=== PATIENT | male | born 1965 | race Caucasian/White ===

== ENCOUNTER 2016-11-03 14:20 | Emergency (ER) | payer MEDICAID ==
[~2016-11-03] VITALS: Ht 175.3 cm; Wt 75.0 kg
[~2016-11-03 14:20] MED LIST: PHEN100C4 PO; SULF1TAB48 PO
[2016-11-03 15:36] VITALS: BP 105/66
== END 2016-11-03 19:30 | disposition left against medical advice (07) ==
LOC: ER 14:20
DX: Z53.21 Procedure and treatment not carried out due to patient leaving prior to being seen by health care provider (principal)

== ENCOUNTER 2016-11-05 17:00 | Emergency (ER) | payer MEDICAID ==
[~2016-11-05] VITALS: Ht 175.3 cm; Wt 73.0 kg
[2016-11-05] MEDS ORDERED: KETOROLAC 60MG/2ML VIAL IM ONE (20:00)
[2016-11-05] MEDS ORDERED: CLINDAMYCIN HCL 150MG CAPSULE PO ONE (20:00)
[2016-11-05 20:40] VITALS: BP 126/75
== END 2016-11-05 20:40 | disposition home or self-care (01) ==
LOC: ER 18:00
DX: J01.90 Acute sinusitis, unspecified (principal); F17.200 Nicotine dependence, unspecified, uncomplicated; F15.10 Other stimulant abuse, uncomplicated; R56.9 Unspecified convulsions; Z98.890 Other specified postprocedural states
CPT/HCPCS: 96372; 99283; J1885

== ENCOUNTER 2017-01-08 19:20 | Emergency (ER) | payer MEDICAID ==
[~2017-01-08] VITALS: Ht 172.7 cm; Wt 78.0 kg
[2017-01-08 19:58] VITALS: BP 137/93
== END 2017-01-08 19:58 | disposition left against medical advice (07) ==
LOC: ER 19:21
DX: R56.9 Unspecified convulsions (principal); Z53.21 Procedure and treatment not carried out due to patient leaving prior to being seen by health care provider

== ENCOUNTER 2017-09-01 10:20 | Emergency (ER) | payer MEDICAID ==
[~2017-09-01] VITALS: Ht 172.7 cm; Wt 73.0 kg
[2017-09-01] MEDS ORDERED: ACETAMINOPHEN 500MG TABLET PO ONE (10:45)
[2017-09-01] MEDS ORDERED: BACITRACIN ZINC OINT UDPKT TOP ONE (10:45)
[2017-09-01 11:00] VITALS: BP 139/96
== END 2017-09-01 11:15 | disposition home or self-care (01) ==
LOC: ER 11:08
DX: S40.211A Abrasion of right shoulder, initial encounter (principal); S80.211A Abrasion, right knee, initial encounter; S50.811A Abrasion of right forearm, initial encounter; F17.200 Nicotine dependence, unspecified, uncomplicated; F15.10 Other stimulant abuse, uncomplicated; V13.4XXA Pedal cycle driver injured in collision with car, pick-up truck or van in traffic accident, initial encounter; Y93.55 Activity, bike riding; Y92.89 Other specified places as the place of occurrence of the external cause; Y99.8 Other external cause status
CPT/HCPCS: 99283

== ENCOUNTER 2018-07-19 12:58 | Emergency (ER) | payer MEDICAID ==
[~2018-07-19] VITALS: Ht 172.7 cm; Wt 72.0 kg
[2018-07-19] MEDS ORDERED: MAGNESIUM/ALUMINUM HYDROXIDE/SIMETHICONE 30ML UDC PO STA (13:28)
[2018-07-19] MEDS ORDERED: VISCOUS LIDOCAINE 2% 15 ML UDC PO STA (13:28)
[2018-07-19] MEDS ORDERED: ASPIRIN 81MG TABLET PO ONE (13:30)
[2018-07-19 14:31] LABS: BASOPHILS % 0.7 % (0.0-2.0); EOSINOPHILS % 1.9 % (0.0-5.0); HEMOGLOBIN. 15.3 g/dL (14.0-18.0); LYMPHOCYTES % 21.4 % (20.0-50.0); MEAN CORPUSCULAR VOLUME 85.3 fL (80.0-94.0); MEAN PLATELET VOLUME 9.9 fl (7.4-10.4); MONOCYTES % 7.7 % (2.0-8.0); NEUTROPHILS % 68.3 % (40.0-76.0); PLATELET 285 x1000/uL (130-400); RED BLOOD CELL COUNT 5.28 mill/uL (4.7-6.1); RED CELL DISTRIBUTION WIDTH 13.7 % (11.6-14.6)
[2018-07-19 14:33] LABS: CHLORIDE 107 mEq/L (98-107)
[2018-07-19] MEDS ORDERED: LABETALOL HCL 20MG/4ML CARPUJECT IV ONE (16:00)
[2018-07-19 17:05] VITALS: BP 160/108
== END 2018-07-19 17:07 | disposition left against medical advice (07) ==
LOC: ER 12:58 → ENRESERV 15:30 → CANRESERV 15:30 → EDBEDREQTM 16:16 → EDBEDREQ 16:16 → ER 17:07 → CANBEDREQ 07-20 00:19
DX: R07.89 Other chest pain (principal); I16.1 Hypertensive emergency; I10 Essential (primary) hypertension; F17.200 Nicotine dependence, unspecified, uncomplicated; F15.10 Other stimulant abuse, uncomplicated; Z98.890 Other specified postprocedural states
CPT/HCPCS: 36415; 71045; 83880; 84484; 93005; 99284

== ENCOUNTER 2018-09-05 04:18 | Emergency (ER) | payer MEDICAID ==
[~2018-09-05] VITALS: Ht 175.3 cm; Wt 73.0 kg
[2018-09-05 04:27] VITALS: BP 166/111
== END 2018-09-05 11:39 | disposition left against medical advice (07) ==
LOC: ER 04:18
DX: Z53.21 Procedure and treatment not carried out due to patient leaving prior to being seen by health care provider (principal)
CPT/HCPCS: 93005

== ENCOUNTER 2018-09-05 13:32 | Emergency (ER) | payer MEDICAID ==
[~2018-09-05] VITALS: Ht 172.7 cm; Wt 75.0 kg
[2018-09-05] MEDS ORDERED: METHYLPREDNISOLONE SOD SUCC 125 MG/2 ML VIAL IM STA (17:56)
[2018-09-05] MEDS ORDERED: ALBUTEROL (0.083%) 2.5MG/3ML NEB HHN STA ×2 (17:56→19:21)
[2018-09-05] MEDS ORDERED: IPRATROPIUM BROMIDE (0.02%) 0.5MG/2.5ML NEB HHN STA ×2 (17:56→19:21)
[2018-09-05 19:03] LABS: BASOPHILS % 0.4 % (0.0-2.0); EOSINOPHILS % 0.4 % (0.0-5.0); HEMATOCRIT. 45.3 % (42.0-52.0); HEMOGLOBIN. 15.1 g/dL (14.0-18.0); LYMPHOCYTES % 9.9 % (20.0-50.0); MEAN CORPUSCULAR HEMOGLOBIN 28.3 pg (28.0-32.0); MEAN CORPUSCULAR VOLUME 85.1 fL (80.0-94.0); MEAN PLATELET VOLUME 9.5 fl (7.4-10.4); MONOCYTES % 7.9 % (2.0-8.0); NEUTROPHILS % 81.4 % (40.0-76.0); PLATELET 243 x1000/uL (130-400); RED BLOOD CELL COUNT 5.32 mill/uL (4.7-6.1); RED CELL DISTRIBUTION WIDTH 14.1 % (11.6-14.6)
[2018-09-05 19:05] LABS: CHLORIDE 102 mEq/L (98-107)
[2018-09-05 19:06] LABS: PROTHROMBIN TIME 10.1 sec (9.1-11.1)
[2018-09-05 19:09] LABS: CLARITY URINE CLEAR (CLEAR); COLOR URINE YELLOW (YELLOW); KETONES URINE NEGATIVE (NEGATIVE); LEUKOCYTE ESTERASE URINE NEGATIVE (NEGATIVE); NITRITE URINE NEGATIVE (NEGATIVE); OCCULT BLOOD URINE NEGATIVE (NEGATIVE); PROTEIN URINE TRACE (NEGATIVE); SPECIFIC GRAVITY URINE 1.016 (1.005-1.030)
[2018-09-05 22:04] VITALS: BP 126/68
== END 2018-09-05 22:10 | disposition home or self-care (01) ==
LOC: ER 13:32
DX: J42 Unspecified chronic bronchitis (principal); F17.210 Nicotine dependence, cigarettes, uncomplicated
CPT/HCPCS: 36415; 71045; 80053; 81003; 83605; 85025; 85610; 94640; 96372; 99284; J2930; J7611; Z7610

== ENCOUNTER 2018-09-07 02:07 | Inpatient (IN) | payer MEDICAID ==
[2018-09-07] VITALS (8 sets, daily range): BP systolic 126–148; BP diastolic 84–103
[~2018-09-07] VITALS: Ht 172.7 cm; Wt 92.5 kg
[2018-09-07] MEDS: IPRATROPIUM/ALBUTEROL 0.5-3(2.5)MG/3ML NEB HHN SCH ×2 (00:51→21:45)
[2018-09-07] MEDS: ACETYLCYSTEINE 100MG/ML 10% VIAL 4ML INH SCH ×2 (00:51→21:46)
[2018-09-07] MEDS ORDERED: KETOROLAC 30MG/ML VIAL IV STA (06:51)
[2018-09-07] MEDS ORDERED: LEVOFLOXACIN 750MG PREMIX 150 ML IV ONE (07:00)
[2018-09-07] MEDS ORDERED: SODIUM CHLORIDE 0.9% 1000ML BAG (SEPSIS BOLUS) IV ONE (07:00)
[2018-09-07 07:20] LABS: BASOPHILS % 0.2 % (0.0-2.0); HEMATOCRIT. 43.1 % (42.0-52.0); HEMOGLOBIN. 14.6 g/dL (14.0-18.0); LYMPHOCYTES % 9.7 % (20.0-50.0); MEAN CORPUSCULAR HEMOGLOBIN 28.8 pg (28.0-32.0); MEAN CORPUSCULAR VOLUME 85.1 fL (80.0-94.0); MEAN PLATELET VOLUME 10.5 fl (7.4-10.4); MONOCYTES % 4.5 % (2.0-8.0); NEUTROPHILS % 85.6 % (40.0-76.0); PLATELET 168 x1000/uL (130-400); RED BLOOD CELL COUNT 5.07 mill/uL (4.7-6.1)
[2018-09-07 07:26] LABS: CHLORIDE 98 mEq/L (98-107)
[2018-09-07 07:52] LABS: CLARITY URINE CLEAR (CLEAR); COLOR URINE DARK YELLOW (YELLOW); KETONES URINE 1+ (NEGATIVE); LEUKOCYTE ESTERASE URINE NEGATIVE (NEGATIVE); NITRITE URINE NEGATIVE (NEGATIVE); OCCULT BLOOD URINE 1+ (NEGATIVE); PROTEIN URINE 2+ (NEGATIVE); SPECIFIC GRAVITY URINE 1.029 (1.005-1.030)
[2018-09-07 08:50] LABS: BG BASE EXCESS 0.1 mmol/L (-2.0-2.0); BG BILEVEL POS AIRWAY PRESSURE 15/5; BG CARBOXYHEMOGLOBIN 0.5 % (0.5-1.5); BG DEOXYHEMOGLOBIN 5.5 % (0.0-5.0); BG FRACTION INSPIRED OXYGEN 40; BG HCO3 ACT 23.4 mmol/L (22.0-26.0); BG METHEMOGLOBIN 0.2 % (0.0-1.5); BG OXYGEN SATURATION 94.5 % (92.0-98.5); BG OXYHEMOGLOBIN 93.8 % (94.0-97.0); BG PCO2 33.8 mmHg (35.0-45.0); BG PH 7.458 (7.350-7.450); BG PO2 69.4 mmHg (75.0-100.0); BG SAMPLE SITE RIGHT RADIAL; BG TOTAL HEMOGLOBIN 13.4 g/dL (12.0-18.0); BG VENT MODE MASK - BIPAP
[2018-09-07] MEDS ORDERED: IOHEXOL-350 100 ML BOTTLE ONE (10:01)
[2018-09-07] MEDS ORDERED: MAGNESIUM/ALUMINUM HYDROXIDE/SIMETHICONE 30ML UDC PO PRN (13:00)
[2018-09-07] MEDS ORDERED: CLONIDINE 0.1MG TABLET PO PRN (13:00)
[2018-09-07] MEDS ORDERED: ONDANSETRON HCL 4MG/2ML INJ IV PRN (13:00)
[2018-09-07] MEDS ORDERED: PIPERACILLIN/TAZ 3.375G PREMIX 50 ML IV SCH (13:00)
[2018-09-07] MEDS ORDERED: IPRATROPIUM/ALBUTEROL 0.5-3(2.5)MG/3ML NEB INH PRN (13:00)
[2018-09-07] MEDS ORDERED: HYDROCODONE/ACETAMINOPHEN 5/325MG TABLET PO PRN (13:00)
[2018-09-07] MEDS: PIPERACILLIN/TAZ 3.375G PREMIX 50 ML IV SCH ×2 (14:25→21:42)
[2018-09-07] MEDS: ENOXAPARIN 40MG/0.4ML SYR SUBCUT SCH (14:26)
[2018-09-07] MEDS ORDERED: VANCOMYCIN 2,000 MG in DEXT 5% WATER 500 ML IV SCH (15:00)
[2018-09-07] MEDS ORDERED: LORAZEPAM 2MG/ML CPJ IV PRN (15:30)
[2018-09-07] MEDS: FOLIC ACID 1MG TABLET PO SCH (16:05)
[2018-09-07] MEDS: THIAMINE HCL 100MG TABLET PO SCH (16:05)
[2018-09-07] MEDS: MULTIVITAMINS,THER W-MINERALS TABLET PO SCH (16:05)
[2018-09-07 18:34] LABS: *AMPHETAMINES SCREEN URINE PRESUMTIVE POSITIVE (NEGATIVE); *BARBITURATES SCREEN URINE NEGATIVE (NEGATIVE); *BENZODIAZEPINES SCREEN URINE NEGATIVE (NEGATIVE); *COCAINE SCREEN URINE NEGATIVE (NEGATIVE); METHADONE URINE SCREEN NEGATIVE (NEGATIVE); OPIATES URINE SCREEN PRESUMTIVE POSITIVE (NEGATIVE)
[2018-09-07 18:35] LABS: CANNABINOID URINE SCREEN NEGATIVE (NEGATIVE); PHENCYCLIDINE URINE SCREEN NEGATIVE (NEGATIVE)
[2018-09-07] MEDS: AZITHROMYCIN 500 MG in DEXT 5% WATER 250 ML IV SCH (18:45)
[2018-09-08] VITALS (12 sets, daily range): BP systolic 111–152; BP diastolic 64–91
[2018-09-08] MEDS ORDERED: VANCOMYCIN 1500MG in DEXTROSE 5% WATER 250ML IV SCH (01:00)
[2018-09-08] MEDS: PIPERACILLIN/TAZ 3.375G PREMIX 50 ML IV SCH ×4 (01:25→17:55)
[2018-09-08 07:24] LABS: HEPATITIS B SURFACE ANTIGEN NEGATIVE
[2018-09-08 07:53] LABS: HEPATITIS A AB IGM NEGATIVE (NEGATIVE)
[2018-09-08] MEDS: IPRATROPIUM/ALBUTEROL 0.5-3(2.5)MG/3ML NEB HHN SCH ×4 (08:22→21:12)
[2018-09-08 08:31] LABS: BASOPHILS % 0.3 % (0.0-2.0); HEMATOCRIT. 39.3 % (42.0-52.0); HEMOGLOBIN. 13.1 g/dL (14.0-18.0); LYMPHOCYTES % 14.2 % (20.0-50.0); MEAN CORPUSCULAR HEMOGLOBIN 28.2 pg (28.0-32.0); MEAN PLATELET VOLUME 10.3 fl (7.4-10.4); MONOCYTES % 5.8 % (2.0-8.0); NEUTROPHILS % 79.7 % (40.0-76.0); PLATELET 137 x1000/uL (130-400); RED BLOOD CELL COUNT 4.63 mill/uL (4.7-6.1); RED CELL DISTRIBUTION WIDTH 13.8 % (11.6-14.6)
[2018-09-08 08:51] LABS: CHLORIDE 102 mEq/L (98-107)
[2018-09-08] MEDS: ACETAMINOPHEN 325MG TABLET PO PRN ×2 (09:02→21:17)
[2018-09-08] MEDS: AMLODIPINE 10MG TABLET PO SCH (09:02)
[2018-09-08] MEDS: FOLIC ACID 1MG TABLET PO SCH (09:02)
[2018-09-08] MEDS: MULTIVITAMINS,THER W-MINERALS TABLET PO SCH (09:02)
[2018-09-08] MEDS: THIAMINE HCL 100MG TABLET PO SCH (09:02)
[2018-09-08] MEDS: ENOXAPARIN 40MG/0.4ML SYR SUBCUT SCH (09:03)
[2018-09-08 09:36] LABS: BG BASE EXCESS 0.4 mmol/L (-2.0-2.0); BG CARBOXYHEMOGLOBIN 0.6 % (0.5-1.5); BG DEOXYHEMOGLOBIN 14.7 % (0.0-5.0); BG FRACTION INSPIRED OXYGEN 21; BG HCO3 ACT 22.4 mmol/L (22.0-26.0); BG METHEMOGLOBIN 0.3 % (0.0-1.5); BG OXYGEN SATURATION 85.2 % (92.0-98.5); BG OXYHEMOGLOBIN 84.4 % (94.0-97.0); BG PCO2 29.1 mmHg (35.0-45.0); BG PH 7.505 (7.350-7.450); BG PO2 44.7 mmHg (75.0-100.0); BG SAMPLE SITE RIGHT RADIAL; BG TOTAL HEMOGLOBIN 13.5 g/dL (12.0-18.0); BG VENT MODE ROOM AIR
[2018-09-08] MEDS: ACETYLCYSTEINE 100MG/ML 10% VIAL 4ML INH SCH ×2 (11:34→15:37)
[2018-09-08] MEDS: VANCOMYCIN 1,750 MG in DEXT 5% WATER 500 ML IV SCH (14:18)
[2018-09-08] MEDS: AZITHROMYCIN 500 MG in DEXT 5% WATER 250 ML IV SCH (16:15)
[2018-09-09] VITALS (12 sets, daily range): BP systolic 103–125; BP diastolic 53–81
[2018-09-09] MEDS: PIPERACILLIN/TAZ 3.375G PREMIX 50 ML IV SCH ×5 (00:03→23:31)
[2018-09-09] MEDS: ACETYLCYSTEINE 100MG/ML 10% VIAL 4ML INH SCH ×3 (01:15→16:09)
[2018-09-09] MEDS: IPRATROPIUM/ALBUTEROL 0.5-3(2.5)MG/3ML NEB HHN SCH ×6 (01:16→20:40)
[2018-09-09] MEDS: VANCOMYCIN 1,750 MG in DEXT 5% WATER 500 ML IV SCH (02:44)
[2018-09-09 07:20] LABS: HIV SCREEN 4G Non Reactive (Non Reactive)
[2018-09-09] MEDS: MULTIVITAMINS,THER W-MINERALS TABLET PO SCH (08:43)
[2018-09-09] MEDS: FOLIC ACID 1MG TABLET PO SCH (08:43)
[2018-09-09] MEDS: AMLODIPINE 10MG TABLET PO SCH (08:43)
[2018-09-09] MEDS: THIAMINE HCL 100MG TABLET PO SCH (08:43)
[2018-09-09] MEDS: ENOXAPARIN 40MG/0.4ML SYR SUBCUT SCH (08:44)
[2018-09-09] MEDS: VANCOMYCIN 2,000 MG in DEXT 5% WATER 500 ML IV SCH ×2 (14:18→19:46)
[2018-09-09] MEDS: AZITHROMYCIN 500 MG in DEXT 5% WATER 250 ML IV SCH (17:05)
[2018-09-09] MEDS: ZOLPIDEM TARTRATE 5MG TABLET PO PRN (21:41)
[2018-09-10] VITALS (12 sets, daily range): BP systolic 106–134; BP diastolic 65–93
[2018-09-10] MEDS: ACETYLCYSTEINE 100MG/ML 10% VIAL 4ML INH SCH ×4 (00:07→16:36)
[2018-09-10] MEDS: IPRATROPIUM/ALBUTEROL 0.5-3(2.5)MG/3ML NEB HHN SCH ×6 (00:40→20:21)
[2018-09-10] MEDS: VANCOMYCIN 2,000 MG in DEXT 5% WATER 500 ML IV SCH ×2 (01:40→08:26)
[2018-09-10] MEDS: PIPERACILLIN/TAZ 3.375G PREMIX 50 ML IV SCH ×4 (06:36→23:32)
[2018-09-10] MEDS: ENOXAPARIN 40MG/0.4ML SYR SUBCUT SCH (08:47)
[2018-09-10] MEDS: FOLIC ACID 1MG TABLET PO SCH (08:48)
[2018-09-10] MEDS: MULTIVITAMINS,THER W-MINERALS TABLET PO SCH (08:48)
[2018-09-10] MEDS: THIAMINE HCL 100MG TABLET PO SCH (08:49)
[2018-09-10] MEDS: AMLODIPINE 10MG TABLET PO SCH (08:49)
[2018-09-10] MEDS: AZITHROMYCIN 500 MG in DEXT 5% WATER 250 ML IV SCH (15:46)
[2018-09-10] MEDS ORDERED: QUET25TA PO (20:19)
[2018-09-10] MEDS: QUETIAPINE FUMARATE 25MG TABLET PO SCH (21:07)
[2018-09-10] MEDS: ZOLPIDEM TARTRATE 5MG TABLET PO PRN (22:07)
[2018-09-11] VITALS (12 sets, daily range): BP systolic 101–124; BP diastolic 55–82
[2018-09-11] MEDS ORDERED: VANCOMYCIN 1,750 MG in DEXT 5% WATER 500 ML IV SCH ×2
[2018-09-11] MEDS: ACETYLCYSTEINE 100MG/ML 10% VIAL 4ML INH SCH ×3 (00:07→15:10)
[2018-09-11] MEDS: IPRATROPIUM/ALBUTEROL 0.5-3(2.5)MG/3ML NEB HHN SCH ×6 (00:07→21:19)
[2018-09-11] MEDS: PIPERACILLIN/TAZ 3.375G PREMIX 50 ML IV SCH ×4 (05:17→23:42)
[2018-09-11 07:11] LABS: CHLORIDE 106 mEq/L (98-107)
[2018-09-11] MEDS: ENOXAPARIN 40MG/0.4ML SYR SUBCUT SCH (09:07)
[2018-09-11] MEDS: THIAMINE HCL 100MG TABLET PO SCH (09:08)
[2018-09-11] MEDS: MULTIVITAMINS,THER W-MINERALS TABLET PO SCH (09:08)
[2018-09-11] MEDS: FOLIC ACID 1MG TABLET PO SCH (09:08)
[2018-09-11] MEDS: AMLODIPINE 10MG TABLET PO SCH (09:09)
[2018-09-11] MEDS ORDERED: POTASSIUM CHLORIDE INJ 40 MEQ in DEXT 5% WATER 250 ML IV SCH (10:00)
[2018-09-11 11:01] LABS: BG BASE EXCESS 2.7 mmol/L (-2.0-2.0); BG CARBOXYHEMOGLOBIN 0.3 % (0.5-1.5); BG DEOXYHEMOGLOBIN 4.3 % (0.0-5.0); BG FRACTION INSPIRED OXYGEN 32; BG HCO3 ACT 26.2 mmol/L (22.0-26.0); BG METHEMOGLOBIN 0.7 % (0.0-1.5); BG OXYGEN SATURATION 95.7 % (92.0-98.5); BG OXYHEMOGLOBIN 94.7 % (94.0-97.0); BG PCO2 36.4 mmHg (35.0-45.0); BG PH 7.475 (7.350-7.450); BG PO2 82.1 mmHg (75.0-100.0); BG SAMPLE SITE RIGHT RADIAL; BG TOTAL HEMOGLOBIN 12.2 g/dL (12.0-18.0); BG VENT MODE NASAL CANNULA
[2018-09-11] MEDS: VANCOMYCIN 2,000 MG in DEXT 5% WATER 500 ML IV SCH ×2 (13:50→23:42)
[2018-09-11] MEDS ORDERED: GUAIFENESIN 200MG/10ML SUGAR FREE UDC PO PRN (16:15)
[2018-09-11] MEDS: AZITHROMYCIN 500 MG in DEXT 5% WATER 250 ML IV SCH (18:27)
[2018-09-11] MEDS: QUETIAPINE FUMARATE 25MG TABLET PO SCH (20:37)
[2018-09-12] VITALS (9 sets, daily range): BP systolic 106–129; BP diastolic 59–88
[2018-09-12] MEDS: ZOLPIDEM TARTRATE 5MG TABLET PO PRN (00:47)
[2018-09-12] MEDS: IPRATROPIUM/ALBUTEROL 0.5-3(2.5)MG/3ML NEB HHN SCH ×4 (01:32→13:02)
[2018-09-12] MEDS: ACETYLCYSTEINE 100MG/ML 10% VIAL 4ML INH SCH ×2 (01:32→09:40)
[2018-09-12] MEDS: PIPERACILLIN/TAZ 3.375G PREMIX 50 ML IV SCH ×2 (05:37→12:27)
[2018-09-12 09:04] LABS: CHLORIDE 109 mEq/L (98-107)
[2018-09-12 09:13] LABS: VANCOMYCIN TROUGH 13.4 ug/mL (5.0-10.0)
[2018-09-12] MEDS: MULTIVITAMINS,THER W-MINERALS TABLET PO SCH (09:36)
[2018-09-12] MEDS: AMLODIPINE 10MG TABLET PO SCH (09:36)
[2018-09-12] MEDS: THIAMINE HCL 100MG TABLET PO SCH (09:36)
[2018-09-12] MEDS: ENOXAPARIN 40MG/0.4ML SYR SUBCUT SCH (09:36)
[2018-09-12] MEDS: FOLIC ACID 1MG TABLET PO SCH (09:36)
[2018-09-12] MEDS ORDERED: VANCOMYCIN 1250MG in DEXTROSE 5% WATER 250ML IV SCH (12:00)
== END 2018-09-12 16:17 | disposition home or self-care (01) | DRG 720 ==
LOC: ER 02:28 → 5EST 08:21 → EDBEDREQ 08:29 → EDBEDREQSVC 08:29 → ENRESERV 09:41
PROVIDERS: ADMIT Hospitalist; ATTEND Hospitalist
PROC: 5A09457 Assistance with Respiratory Ventilation, 24-96 Consecutive Hours, Continuous Positive Airway Pressure (ICD-10-PCS; principal; 2018-09-07)
PROC: 5A09357 Assistance with Respiratory Ventilation, Less than 24 Consecutive Hours, Continuous Positive Airway Pressure (ICD-10-PCS; 2018-09-10)
DX: A41.9 Sepsis, unspecified organism (principal); J96.21 Acute and chronic respiratory failure with hypoxia; E87.3 Alkalosis; G93.41 Metabolic encephalopathy; N17.9 Acute kidney failure, unspecified; J18.9 Pneumonia, unspecified organism; E87.0 Hyperosmolality and hypernatremia; J40 Bronchitis, not specified as acute or chronic; E11.22 Type 2 diabetes mellitus with diabetic chronic kidney disease; B19.20 Unspecified viral hepatitis C without hepatic coma; F03.90 Unspecified dementia, unspecified severity, without behavioral disturbance, psychotic disturbance, mood disturbance, and anxiety; F10.10 Alcohol abuse, uncomplicated; F15.10 Other stimulant abuse, uncomplicated; F17.210 Nicotine dependence, cigarettes, uncomplicated; I12.9 Hypertensive chronic kidney disease with stage 1 through stage 4 chronic kidney disease, or unspecified chronic kidney disease; I42.9 Cardiomyopathy, unspecified; J44.0 Chronic obstructive pulmonary disease with (acute) lower respiratory infection; J44.1 Chronic obstructive pulmonary disease with (acute) exacerbation; N18.9 Chronic kidney disease, unspecified; N40.0 Benign prostatic hyperplasia without lower urinary tract symptoms; Z99.81 Dependence on supplemental oxygen
CPT/HCPCS: 36415; 36600; 71045; 71275; 80048; 80202; 80305; 82375; 82805; 83605; 84145; 84484; 86705; 86709; 86803; 87070; 87340; 87389; 93005; 93306; 94640; 94660; 94667; 96365; 96375; 97162; 99291; J0456; J1650; J1885; J1956; J2405; J2543; J3370; J3480; J7030; J7040; J7050; J7060; J7608; J7620; Q9967

== ENCOUNTER 2019-01-12 06:54 | Emergency (ER) | payer MEDICAID ==
[~2019-01-12] VITALS: Ht 172.7 cm; Wt 75.0 kg
[~2019-01-12 06:54] MED LIST changes: +QUET25TA PO
[2019-01-12 06:58] VITALS: BP 136/100
== END 2019-01-12 09:34 | disposition home or self-care (01) ==
LOC: ER 07:20
DX: S90.32XA Contusion of left foot, initial encounter (principal); Y08.02XA Assault by strike by baseball bat, initial encounter; Y93.89 Activity, other specified; Y92.89 Other specified places as the place of occurrence of the external cause; F15.10 Other stimulant abuse, uncomplicated; I10 Essential (primary) hypertension
CPT/HCPCS: 73610; 73630; 99283; Z7610

== ENCOUNTER 2019-05-17 13:00 | Emergency (ER) | payer MEDICAID ==
[~2019-05-17] VITALS: Ht 177.8 cm; Wt 82.0 kg
[2019-05-17] MEDS ORDERED: ALBUTEROL (0.083%) 2.5MG/3ML NEB HHN STA (13:24)
[2019-05-17] MEDS ORDERED: PREDNISONE 20MG TABLET PO STA (13:24)
[2019-05-17] MEDS ORDERED: IPRATROPIUM BROMIDE (0.02%) 0.5MG/2.5ML NEB HHN STA (13:24)
[2019-05-17 13:53] LABS: BG BASE EXCESS -2.6 mmol/L (-2.0-2.0); BG DEOXYHEMOGLOBIN 5.4 % (0.0-5.0); BG FRACTION INSPIRED OXYGEN 21; BG HCO3 ACT 21.1 mmol/L (22.0-26.0); BG METHEMOGLOBIN 0.3 % (0.0-1.5); BG OXYGEN SATURATION 94.5 % (92.0-98.5); BG OXYHEMOGLOBIN 92.3 % (94.0-97.0); BG PCO2 33.8 mmHg (35.0-45.0); BG PH 7.413 (7.350-7.450); BG PO2 72.4 mmHg (75.0-100.0); BG SAMPLE SITE RIGHT BRACHIAL; BG TOTAL HEMOGLOBIN 15.1 g/dL (12.0-18.0); BG VENT MODE ROOM AIR
[2019-05-17 15:33] LABS: *AMPHETAMINES SCREEN URINE PRESUMTIVE POSITIVE (NEGATIVE); *BARBITURATES SCREEN URINE NEGATIVE (NEGATIVE); *BENZODIAZEPINES SCREEN URINE NEGATIVE (NEGATIVE); *COCAINE SCREEN URINE NEGATIVE (NEGATIVE); CANNABINOID URINE SCREEN NEGATIVE (NEGATIVE); METHADONE URINE SCREEN NEGATIVE (NEGATIVE); OPIATES URINE SCREEN NEGATIVE (NEGATIVE); PHENCYCLIDINE URINE SCREEN NEGATIVE (NEGATIVE)
[2019-05-17 17:19] VITALS: BP 132/89
== END 2019-05-17 17:19 | disposition home or self-care (01) ==
LOC: ER 13:00
DX: J45.901 Unspecified asthma with (acute) exacerbation (principal); F12.10 Cannabis abuse, uncomplicated; F15.10 Other stimulant abuse, uncomplicated; F16.10 Hallucinogen abuse, uncomplicated; F17.210 Nicotine dependence, cigarettes, uncomplicated; F14.10 Cocaine abuse, uncomplicated; R06.4 Hyperventilation; Z71.6 Tobacco abuse counseling; I10 Essential (primary) hypertension
CPT/HCPCS: 36600; 71045; 80305; 82375; 82805; 93005; 94640; 99284; J7512; J7611; Z7610

== ENCOUNTER 2019-12-02 09:02 | Emergency (ER) | payer MEDICAID ==
[~2019-12-02] VITALS: Ht 185.4 cm; Wt 94.0 kg
[2019-12-02 10:03] LABS: BASOPHILS % 0.7 % (0.0-2.0); EOSINOPHILS % 1.3 % (0.0-5.0); HEMATOCRIT. 44.1 % (42.0-52.0); HEMOGLOBIN. 15.2 g/dL (14.0-18.0); MEAN CORPUSCULAR HEMOGLOBIN 30.4 pg (28.0-32.0); MEAN CORPUSCULAR VOLUME 88.5 fL (80.0-94.0); MEAN PLATELET VOLUME 9.6 fl (7.4-10.4); MONOCYTES % 4.1 % (2.0-8.0); NEUTROPHILS % 77.9 % (40.0-76.0); PLATELET 266 x1000/uL (130-400); RED BLOOD CELL COUNT 4.99 mill/uL (4.7-6.1); RED CELL DISTRIBUTION WIDTH 14.7 % (11.6-14.6)
[2019-12-02 10:10] LABS: CHLORIDE 111 mEq/L (98-107)
[2019-12-02 10:14] LABS: ETHANOL BLOOD < 10 mg/dL
[2019-12-02] MEDS ORDERED: FUROSEMIDE 40MG/4ML VIAL IV ONE (10:30)
[2019-12-02] MEDS ORDERED: ASPIRIN 81MG TABLET PO ONE (10:30)
[2019-12-02 10:49] LABS: *AMPHETAMINES SCREEN URINE PRESUMTIVE POSITIVE (NEGATIVE); *BARBITURATES SCREEN URINE NEGATIVE (NEGATIVE); *BENZODIAZEPINES SCREEN URINE NEGATIVE (NEGATIVE); *COCAINE SCREEN URINE NEGATIVE (NEGATIVE); CANNABINOID URINE SCREEN NEGATIVE (NEGATIVE); METHADONE URINE SCREEN NEGATIVE (NEGATIVE); PHENCYCLIDINE URINE SCREEN NEGATIVE (NEGATIVE)
[2019-12-02 10:50] LABS: OPIATES URINE SCREEN NEGATIVE (NEGATIVE)
[2019-12-02 11:58] VITALS: BP 126/86
== END 2019-12-02 12:14 | disposition left against medical advice (07) ==
LOC: ER 09:02 → CANBEDREQ 12:14 → ER 12:14
DX: I11.0 Hypertensive heart disease with heart failure (principal); I50.9 Heart failure, unspecified; J44.9 Chronic obstructive pulmonary disease, unspecified; F12.10 Cannabis abuse, uncomplicated; F15.10 Other stimulant abuse, uncomplicated; Z79.899 Other long term (current) drug therapy
CPT/HCPCS: 36415; 71045; 80053; 80305; 80320; 83880; 84484; 85025; 93005; 96374; 99285; J1940; Z7610; G0480